=== PATIENT | male | born 1960 | race Caucasian/White ===

== ENCOUNTER 2019-12-18 09:08 | Observation (INO) ==
[2019-12-18] MEDS ORDERED: ONDANSETRON INJ 2 MG/ML 2 ML VIAL IV STA (09:26)
[2019-12-18] MEDS ORDERED: SODIUM CHLORIDE 0.9% 1000ML 1,000 ML IV SCH (09:30)
[2019-12-18] MEDS ORDERED: MoRPHine SULFATE 10 MG/ML CARP/VIAL IV STA (09:32)
--- NOTE | 2019-12-18 09:35 | Emergency Department Note ---
Impression & Plan Acute cholecystitis, Epigastric abdominal pain, Leukocytosis, CLARKE (acute kidney injury) ED Provider Note NAME: LANCE MONTALVO AGE: 59 SEX: M : 1960 ARRIVES VIA: Walk-In INFORMANT: Patient ED PROVIDER(S): Yong Morales DO CHIEF COMPLAINT: Abdominal pain HPI: Patient is a 59-year-old male who is complaining of right mid abdominal pain. This started this past Wednesday night while he was just working in his garage. He denies any trauma. He describes pain as a 10 out of 10. It is sharp and stabbing. There is no radiation. Admits to some nausea but no vomiting. Has been having normal bowel movements. No dysuria, urgency or frequency. He had no pain in back. He denies any hematuria. He has never had anything like this before. No previous belly surgeries. He notes sitting up on the toilet makes the pain slightly better. He has taken Aleve with minimal improvement. No other exacerbating or remitting factors. ROS: See above HPI for pertinent positives & negatives. A total of 10 systems reviewed and were otherwise negative. PAST MEDICAL HISTORY:See Below PAST SURGICAL HISTORY:None FAMILY HISTORY:See Below SOCIAL HISTORY:Denies smoking HOME MEDICATIONS:See Below ALLERGIES:See Below VITALS:See Below PHYSICAL EXAMINATION: GENERAL: Sitting up in bed, alert, moderate distress holding right mid abdomen EYE EXAM: normal conjunctiva. OROPHARYNX: no exudate, no erythema, lips, buccal mucosa, and tongue normal and mucous membranes are moist NECK: supple, no nuchal rigidity, no adenopathy, non-tender LUNGS: Clear to auscultation. Normal chest wall mechanics HEART: no murmurs, S1 normal and S2 normal ABDOMEN: abdomen soft, tender in right mid abdomen, normo-active bowel sounds, no masses, no rebound or guarding. BACK: Back is symmetrical on inspection and there is no deformity, no midline tenderness, no CVA tenderness. SKIN: no rashes and no bruising UPPER EXTREMITIES: upper extremities are grossly normal. LOWER EXTREMITIES: No pitting edema. NEURO EXAM: Normal sensorium, cranial nerves II-XII grossly intact, normal speech, no gross weakness of arms, no gross weakness of legs. MEDICAL DECISION MAKING: Patient is a 59-year-old male who presents the ER for severe abdominal pain which started this past Wednesday. IV was established blood work was obtained. Labs show leukocytosis of 21.5 thousand. No significant anemia. BMP with a creatinine of 1.9 suggesting acute kidney injury. BUN was also elevated consistent with dehydration. LFTs and bilirubin was negative. Lipase was normal. CT abdomen pelvis shows acute cholecystitis. Patient was given IV fluids, 2 dose of IV morphine as well as IV Zosyn. He was updated bedside. Discussed with general surgery and patient was taken to the OR for acute cholecystitis. Triage Nursing notes reviewed. Prior medical records reviewed Vital Signs: reviewed and remarkable for tachycardic and tachypneic Differential diagnosis: Differential diagnoses includes but is not limited to gastritis, peptic ulcer disease, GERD, gallbladder disease, pancreatitis, small bowel obstruction, acute coronary syndrome, pericarditis, ischemic bowel, irritable bowel disease, irritable bowel syndrome, appendicitis, diverticulitis, malignancy, hernia, urinary tract infection, torsion, /ectopic (if female), perforation, trauma, infectious. ER treatment provided: See below Diagnostics interpreted by me: ECG: none Cardiac Monitoring: An order was placed for continuous cardiac monitoring. The monitor shows a rate of 95 with sinus rhythm. Laboratory studies: As stated above and show below. Imaging studies: CT abdomen pelvis shows acute cholecystitis. Consultation(s): Discussed with Codie from general surgery who accepted the patient. ED COURSE: Procedures: none Critical Care: None Past Med/Surg History Surgical History (Updated 12/18/19 @ 13:02 by Sophia Barakat RN) History of foot surgery (Acute) left foot - placed screw in foot then removed screw several months later (when pt was a teenager) History of shoulder surgery (Acute) right shoulder S/P right knee arthroscopy Social History Feels Safe at Home: Yes Smoking Status: Never smoker Allergies Allergies Allergy/AdvReac Type Severity Reaction Status Date / Time No Known Allergies Allergy Unverified 12/18/19 11:35 Home Meds Home Medications Medication Instructions Recorded Confirmed naproxen sodium [Aleve] 220 mg PO BID PRN 12/18/19 12/18/19 Results & Data (ED) Vital Signs Vital Signs - 24 hr 12/18/19 09:22 12/18/19 09:44 12/18/19 10:46 Temperature 36.5 C Temperature Source Oral Pulse Rate 99 H Pulse Rate [Right Finger] Respiratory Rate 28 H Respiratory Effort / Characteristics Respiratory Depth Respiratory Pattern Blood Pressure 134/84 124/80 Blood Pressure [Right Arm] Blood Pressure Mean 100 100 Blood Pressure Mean [Right Arm] Blood Pressure Position [Right Arm] Pulse Oximetry 96 95 Oxygen Delivery Method Room Air Room Air Sepsis Recent Fever Within 48 Hours No Sepsis New/Unexplained Change in Mental Status No Sepsis Action Taken by Nursing No Action Required 12/18/19 10:47 12/18/19 11:36 12/18/19 11:38 Temperature Temperature Source Pulse Rate 93 H Pulse Rate [Right Finger] 92 H Respiratory Rate 22 23 Respiratory Effort / Characteristics Non-Labored Spontaneous Respiratory Depth Normal Respiratory Pattern Regular Blood Pressure 117/81 Blood Pressure [Right Arm] 128/80 Blood Pressure Mean 91 Blood Pressure Mean [Right Arm] 96 Blood Pressure Position [Right Arm] Lying Pulse Oximetry 97 Oxygen Delivery Method Room Air Sepsis Recent Fever Within 48 Hours Sepsis New/Unexplained Change in Mental Status Sepsis Action Taken by Nursing 12/18/19 12:30 12/18/19 12:42 Temperature 36.7 C Temperature Source Oral Pulse Rate Pulse Rate [Right Finger] 89 Respiratory Rate 22 Respiratory Effort / Characteristics Non-Labored Spontaneous Respiratory Depth Normal Respiratory Pattern Regular Blood Pressure Blood Pressure [Right Arm] 141/92 H Blood Pressure Mean Blood Pressure Mean [Right Arm] 108 Blood Pressure Position [Right Arm] Sitting Pulse Oximetry 93 Oxygen Delivery Method Room Air Room Air Sepsis Recent Fever Within 48 Hours Sepsis New/Unexplained Change in Mental Status Sepsis Action Taken by Nursing Laboratory Data Result diagrams: 12/18/19 09:35 12/18/19 09:35 Lab Results 12/18/19 12/18/19 Range/Units 09:35 09:35 WBC 21.52 H (4.8-10.8) K/uL RBC 5.36 (4.7-6.1) M/uL Hgb 17.5 (14.0-18.0) g/dL Hct 49.9 (42-52) % MCV 93.1 (80-100) fL MCH 32.6 (25-34) pg MCHC 35.1 (32-36) g/dL RDW Std Deviation 45.5 (36.4-46.3) fL RDW Coeff of Ahmet 13.3 (11.5-14.5) % Plt Count 161 (130-400) K/uL MPV 9.0 (7.4-10.4) fL Immature Gran % (Auto) 0.6 % Neut % (Auto) 92.8 % Lymph % (Auto) 2.6 % [place] % (Auto) 3.7 % Eos % (Auto) 0.2 % Baso % (Auto) 0.1 % Immature Gran # (Auto) 0.13 H (0.00-0.02) K/uL Neut # (Auto) 19.98 H (1.4-6.5) K/uL Lymph # (Auto) 0.55 L (1.2-3.4) K/uL [place] # (Auto) 0.79 H (0.11-0.59) K/uL Eos # (Auto) 0.05 (0-0.5) K/uL Baso # (Auto) 0.02 (0-0.2) K/uL Sodium 133 L (136-145) mmol/L Potassium 3.8 (3.5-5.1) mmol/L Chloride 96 L (98-107) mmol/L Carbon Dioxide 27 (21-32) mmol/L Anion Gap 10.0 (3-11) BUN 34 H (7-18) mg/dl Creatinine 1.90 H (0.6-1.4) mg/dl Est Cr Clr Drug Dosing Not Reportable Est GFR ( Amer) 44.4 Est GFR (Non-Af Amer) 38.3 BUN/Creatinine Ratio 18.0 (10-20) Glucose 110 H (70-99) mg/dl Calcium 8.5 (8.5-10.1) mg/dl Total Bilirubin 0.7 (0.2-1) mg/dl AST 22 (15-37) U/L ALT 19 (12-78) U/L Alkaline Phosphatase 123 H (45-117) U/L Total Protein 7.5 (6.4-8.2) gm/dl Albumin 3.0 L (3.4-5.0) gm/dl Globulin 4.5 H (2.5-4.0) gm/dl Albumin/Globulin Ratio 0.7 L (0.9-2) Lipase 51 L (73-393) U/L Administered Medications Ioversol (Optiray 320 100ml) 94 ml IV ONCE PRN PRN Reason: Interaction Checking Stop: 12/22/19 10:47 Last Admin: 12/18/19 10:49 Dose: 94 ml Documented by: [id number] Discontinued Medications Bupivacaine HCl (Marcaine 0.5% Mpf) Confirm Administered Dose 30 ml .ROUTE .STK- MED ONE Stop: 12/18/19 13:03 Last Admin: 12/18/19 14:51 Dose: 30 ml Documented by: [id number] Epinephrine HCl (Epinephrine) Confirm Administered Dose 1 mg .ROUTE .STK-MED ONE Stop: 12/18/19 13:04 Last Admin: 12/18/19 14:27 Dose: 0.15 mg Documented by: [id number] Sodium Chloride (Nss 1000ml) 1,000 mls @ 999 mls/hr IV .Q1H1M EMILEE Stop: 12/18/19 10:30 Last Infusion: 12/18/19 10:43 Dose: 0 mls/hr Documented by: [id number] Admin: 12/18/19 09:40 Dose: 999 mls/hr Documented by: [id number] Piperacillin Sod/Tazobactam Sod (Zosyn) 4.5 gm in 120 mls @ 240 mls/hr IV NOW ONE Stop: 12/18/19 11:49 Last Infusion: 12/18/19 12:11 Dose: 0 mls/hr Documented by: [id number] Admin: 12/18/19 11:34 Dose: 240 mls/hr Documented by: [id number] Morphine Sulfate (Morphine Sulfate) 6 mg IV NOW STA Stop: 12/18/19 09:33 Last Admin: 12/18/19 09:39 Dose: 6 mg Documented by: [id number] Ondansetron HCl (Zofran) 4 mg IV NOW STA Stop: 12/18/19 09:27 Last Admin: 12/18/19 09:39 Dose: 4 mg Documented by: [id number] Discharge Plan Visit Data *Final* Discharge Date/Time: 12/18/19 12:30 Chief Complaint: Abdominal Pain Stated Complaint: ABDOMINAL PAIN ED Provider: Yong Morales Discharge Problem: Acute cholecystitis, Epigastric abdominal pain, Leukocytosis, CLARKE (acute kidney injury) Patient Disposition: Still a Patient Discharge Instructions Interventions: ED Discharge Assessment Last Done: 12/18/19 12:30 Discharge Problem: Leukocytosis Qualifiers: Leukocytosis type: unspecified Qualified Code(s): D72.829 - Elevated white blood cell count, unspecified
[2019-12-18 09:50] LABS: Basophils # (auto) 0.02 K/uL (0-0.2); Basophils % (auto) 0.1 %; Eosinophils # (auto) 0.05 K/uL (0-0.5); Eosinophils % (auto) 0.2 %; Hematocrit (blood only) 49.9 % (42-52); Hemoglobin 17.5 g/dL (14.0-18.0); Immature Granulocytes # (auto) 0.13 K/uL (0.00-0.02); Immature Granulocytes % (auto) 0.6 %; Lymphocytes # (auto) 0.55 K/uL (1.2-3.4); Lymphocytes % (auto) 2.6 %; Mean Corpuscular Hemoglobin 32.6 pg (25-34); Mean Corpuscular Hgb Conc 35.1 g/dL (32-36); Mean Corpuscular Volume 93.1 fL (80-100); Monocytes # (auto) 0.79 K/uL (0.11-0.59); Monocytes % (auto) 3.7 %; Neutrophils # (auto) 19.98 K/uL (1.4-6.5); Neutrophils % (auto) 92.8 %; Platelet Count 161 K/uL (130-400); RDW Coefficient of Variation 13.3 % (11.5-14.5); RDW Standard Deviation 45.5 fL (36.4-46.3); Red Blood Count 5.36 M/uL (4.7-6.1); White Blood Count 21.52 K/uL (4.8-10.8)
[2019-12-18 10:11] LABS: Alanine Aminotransferase 19 U/L (12-78); Albumin Globulin Ratio 0.7 (0.9-2); Alkaline Phosphatase 123 U/L (45-117); Aspartate Aminotransferase 22 U/L (15-37); Bilirubin,Total 0.7 mg/dl (0.2-1); Blood Urea Nitrogen 34 mg/dl (7-18); Calcium 8.5 mg/dl (8.5-10.1); Carbon Dioxide 27 mmol/L (21-32); Chloride 96 mmol/L (98-107); Est GFR (African American) 44.4; Est GFR (Non-African American) 38.3; Globulin 4.5 gm/dl (2.5-4.0); Glucose 110 mg/dl (70-99); Lipase 51 U/L (73-393); Potassium 3.8 mmol/L (3.5-5.1); Sodium 133 mmol/L (136-145); Total Protein 7.5 gm/dl (6.4-8.2)
[2019-12-18] MEDS ORDERED: IOVERSOL 100ml IV PRN (10:48)
--- NOTE | 2019-12-18 11:14 | CT Scan Report ---
CT OF THE ABDOMEN AND PELVIS WITH CONTRAST CLINICAL HISTORY: Right-sided abdominal pain. COMPARISON STUDY: CT of the abdomen and pelvis May 10, 2015. TECHNIQUE: Following IV administration of 94 mL of Optiray-320, axial images of the abdomen and pelvi s were obtained from the lung bases to the proximal femurs. Images were reviewed in the axial, sagitt al, and coronal planes. IV contrast was administered without complication. Automated exposure contro l was utilized for the study. A dose lowering technique was utilized adhering to the principles of A TEAGAN. CT DOSE: 286.93 mGy.cm FINDINGS: Imaged portions of the lower chest demonstrate a small hiatal hernia with distal esophageal wall thickening. No pneumatosis, free air or portal venous gas is present. The liver, spleen, adrena l glands, kidneys and pancreas are unremarkable. The gallbladder is moderately distended. There is ma rked gallbladder wall thickening with moderate pericholecystic fluid. There are gallstones within the gallbladder. Indistinctness of the gallbladder wall in several locations is noted. There is mass eff ect on the adjacent colon. The right colon is fluid-filled. The appendix is unremarkable. There is no evidence for a bowel obstruction. Mild bladder wall thickening is noted. Prostate is moderately enla rged. There are no suspicious osseous lesions. IMPRESSION: 1. Findings consistent with severe acute cholecystitis. Indistinctness of the gallbladder wall raises the possibility of gangrenous cholecystitis. 2. Small hiatal hernia. Distal esophageal wall thickening which favors esophagitis. ACT 112: Negative or not required by law. Electronically signed by: Jaret Christie M.D. 12/18/2019 11:12 AM
[2019-12-18] MEDS ORDERED: PIPERACILL/TAZOBAC CONSULT ACTIVE PRN ×2 (11:20→17:50)
[2019-12-18] MEDS ORDERED: PIPERACILLIN/TAZOBACTAM 4.5 GM/120 ML BAG IV ONE (11:20)
--- NOTE | 2019-12-18 12:05 | Surgery Consultation ---
Date of Consultation December 18, 2019 Assessment & Plan (1) Acute cholecystitis: This is a 59y M with no significant PMH who presents to the [facility] ED on 12/18/19 with complaints of severe abdominal pain that has persisted since Wednesday. In the ED patient was found to have a WBC of [address] findings concerning for severe acute cholecystitis with concern for gangrenous cholecystitis. LFT's show Tbili:0.7, AST:22, ALT:19, Alkp:123, Lipase: 51. On examination patient is acutely tender in the right upper and mid right abdomen. After review of imaging findings and physical exam we will proceed to take the patient to the OR for cholecystectomy. Keep patient NPO with IVF and IV abx. Dr. Espinal will be by to obtain consent. as above. +acute cholecystitis. discussed options/risks ( bleeding/infection/dvt/pe/mi/cva/injury to an organ/bile leaks, etc...). questions answered. will proceed with lap/possible open cholecystectomies. History of Present Illness History of Present Illness This is a 59y M with no significant PMH who presents to the [facility] ED on 12/18/19 with complaints of severe abdominal pain. Patient reports the pain started on Wednesday after eating stir-hedrick. He states that the pain continued to persist and worsen throughout the weekend prompting him to come to the ED for evaluation. He hasn't had anything to eat since the stir-hedrick on wednesday and has been trying to drink water and gatorade. He says that he also had some episodes of vomiting related to the pain. In the ED patient was found to have a WBC of [address] a/p revealed findings consistent with severe acute cholecystitis. Indistinctness of the gallbladder wall raises the possibility of gangrenous cholecystitis. Patient endorses + fevers/chills over the weekend. He denies any chest pain, shortness of breath, urinary symptoms, or diarrhea/constipation. He currently rates his pain an 11/10, stating that it's sharp and constant. He denies feeling pain like this before and denies prior abdominal surgeries. Surgery was consulted for fur ther evaluation. Allergies Allergy/AdvReac Type Severity Reaction Status Date / Time No Known Allergies Allergy Unverified 12/18/19 11:35 Home Medications Home Medications Medication Instructions Recorded Confirmed Type naproxen sodium [Aleve] 220 mg PO BID PRN 12/18/19 12/18/19 History Patient History Surgical History (Updated 12/18/19 @ 12:56 by Suleman Chaves DO) History of shoulder surgery (Acute) S/P right knee arthroscopy Social History Feels Safe at Home: Yes Smoking Status: Never smoker Review of Systems Constitutional: + fever and + chills Respiratory: no dyspnea Cardiovascular: no chest pain Gastrointestinal: + abdominal pain (mid and right sided abd pain), + nausea and + vomiting; no bloating and no change in bowel habits Physical Exam Physical Exam: awake/alert Respiratory: normal respiratory effort Gastrointestinal (Abdomen): Inspection/Auscultation: abdomen not distended Percussion/Palpation: + abdomen tender (patient is ttp in the RUQ and right mid- abdomen) and + guarding Results & Data Vital Signs (Past 12 Hours) Vital Signs Temp Pulse Pulse Resp BP BP Pulse Ox 12/18/19 11:38 93 H 23 12/18/19 11:36 117/81 12/18/19 10:47 92 H 22 128/80 97 12/18/19 10:46 124/80 12/18/19 09:44 95 12/18/19 09:22 36.5 C 99 H 28 H 134/[address] OF THE ABDOMEN AND PELVIS WITH CONTRAST CLINICAL HISTORY: Right-sided abdominal pain. COMPARISON STUDY: CT of the abdomen and pelvis May 10, 2015. TECHNIQUE: Following IV administration of 94 mL of Optiray-320, axial images of the abdomen and pelvis were obtained from the lung bases to the proximal femurs. Images were reviewed in the axial, sagittal, and coronal planes. IV contrast was administered without complication. Automated exposure control was utilized for the study. A dose lowering technique was utilized adhering to the principles of ALARA. CT DOSE: 286.93 mGy.cm FINDINGS: Imaged portions of the lower chest demonstrate a small hiatal hernia with distal esophageal wall thickening. No pneumatosis, free air or portal venous gas is present. The liver, spleen, adrenal glands, kidneys and pancreas are unremarkable. The gallbladder is moderately distended. There is marked gallbladder wall thickening with moderate pericholecystic fluid. There are gallstones within the gallbladder. Indistinctness of the gallbladder wall in sev eral locations is noted. There is mass effect on the adjacent colon. The right colon is fluid-filled. The appendix is unremarkable. There is no evidence for a bowel obstruction. Mild bladder wall thickening is noted. Prostate is moderately enlarged. There are no suspicious osseous lesions. IMPRESSION: 1. Findings consistent with severe acute cholecystitis. Indistinctness of the gallbladder wall raises the possibility of gangrenous cholecystitis. 2. Small hiatal hernia. Distal esophageal wall thickening which favors esophagitis. ACT 112: Negative or not required by law. Electronically signed by: Jaret Christie M.D. 12/18/2019 11:12 AM PG Care Time/CCT Total # of Minutes Spent Total Time Spent with Patient: Total time spent is greater than 50% in coordination of care (as documented) at patient's floor/unit and/or counseling patient: Coding Level of Care Code 78338 Office/OBS Consult Lvl 4 Diagnoses Acute cholecystitis K81.0
[2019-12-18] MEDS ORDERED: ePHEDrine sulfate 50 MG/ML AMP IV PRN (12:39)
[2019-12-18] MEDS ORDERED: ATROPINE SULFATE 0.1 MG/ML 10ML SYR IV PRN (12:39)
[2019-12-18] MEDS ORDERED: ONDANSETRON INJ 2 MG/ML 2 ML VIAL IV PRN ×2 (12:39→22:01)
[2019-12-18] MEDS ORDERED: ROCURONIUM BROMIDE 10 MG/ML 5 ML VIAL ONE ×2 (12:51→13:16)
[2019-12-18] MEDS ORDERED: fentaNYL citrate 100 MCG/2 ML VIAL ONE ×3 (12:51→14:06)
[2019-12-18] MEDS ORDERED: MIDAZOLAM HCL 1 MG/ML 2ML VIAL ONE ×2 (12:51→13:16)
[2019-12-18] MEDS ORDERED: LIDOCAINE HCL 2% 2 ML VIAL/AMP(20MG/ML) INFIL ONE ×3 (12:51→14:17)
[2019-12-18] MEDS ORDERED: ONDANSETRON INJ 2 MG/ML 2 ML VIAL ONE ×2 (12:51→13:16)
[2019-12-18] MEDS ORDERED: PROPOFOL IV EMULSION 10 MG/ML 20 ML VIAL IV ONE ×2 (12:51→13:16)
--- NOTE | 2019-12-18 12:58 | Anesthesiology Consultation ---
Date of Service December 18, 2019 Assessment & Plan (1) Encounter for pre-operative examination: Chart Review Chart Review: Acceptable Risk for Surgery Consults Requested none ASA ASA2 Proposed Anesthesia Anesthesia Type: General Risk / Benefits Reviewed With: PT / POA / Parent / Guardian, Accepts Plan and Informed Consent Obtained History Surgery Operation Date: 12/18/19 12:35 Proposed Procedures p Laparoscopic Cholecystectomy - Lex Espinal, DO Height/Weight Height: 5 ft 7 in Weight: 83.915 kg Allergies Allergy/AdvReac Type Severity Reaction Status Date / Time No Known Allergies Allergy Unverified 12/18/19 11:35 Medications Home Medications Medication Instructions Recorded Confirmed Last Taken naproxen sodium [Aleve] 220 mg PO BID PRN 12/18/19 12/18/19 12/18/19 Active Medications Generic Name Dose Route Start Last Admin Trade Name Freq PRN Reason Stop Dose Admin Ioversol 94 ml 12/18/19 10:48 12/18/19 10:49 Optiray 320 100ml IV 12/22/19 10:47 94 ml ONCE PRN Administration Interaction Checking NPO Date Last Intake of Fluids: 12/18/19 Time Last Intake of Fluids: 08:30 Date Last Intake of Solids: 12/15/19 Exercise / Class Metabolic Activity II 4-5 Yardwork/Stairs/Walk up hill Past Surgical History Surgical History (Updated 12/18/19 @ 13:02 by Sophia Barakat RN) History of foot surgery (Acute) left foot - placed screw in foot then removed screw several months later (whe n pt was a teenager) History of shoulder surgery (Acute) right shoulder S/P right knee arthroscopy Past Anesthesia History No Hx of Anesthesia Complications and No Family Hx of Anesthesia Complications History of PONV No Hx of PONV and No Hx of Motion Sickness Social History Smoking Status: Never smoker Physical Exam Vital Signs Last Vital Signs Temp 98.1 F 12/18/19 12:42 Pulse 89 12/18/19 12:42 Resp 22 12/18/19 12:42 BP 141/92 H 12/18/19 12:42 Pulse Ox 93 12/18/19 12:42 ENMT Mouth: no dentition abnormality Thyromental Distance: > or= 3.5 Finger Breadths Mallampati Class: II Neck normal visual inspection Respiratory normal respiratory effort Auscultation: lungs clear to auscultation bilaterally Cardiovascular Rate/Rhythm: regular rate and regular rhythm Testing Laboratory Results 12/18/19 09:35 12/18/19 09:35 Electrocardiogram Date: 12/18/19 Findings: + NSR @ (95 bpm) short IA
[2019-12-18] MEDS ORDERED: BUPIVACAINE 0.5 % 5 MG/1 ML MPF 30ML VIAL ONE (13:02)
[2019-12-18] MEDS ORDERED: EPINEPHrine INJ 1 MG/ML AMP ONE (13:03)
[2019-12-18] MEDS ORDERED: GLYCOPYRROLATE 0.2 MG/ML VIAL ONE (14:17)
[2019-12-18] MEDS ORDERED: LARYING-O-JET KIT (LTA) ONE (14:17)
[2019-12-18] MEDS ORDERED: NEOSTIGMINE METHYLSULFATE 5 MG/5 ML SYR ONE (14:17)
[2019-12-18] MEDS ORDERED: DEXAMETHASONE SOD INJ 4 MG/ML VIAL ONE (14:17)
[2019-12-18] MEDS ORDERED: LABETALOL HCL IV 5 MG/ML 20ML IV ONE (14:22)
--- NOTE | 2019-12-18 15:08 | Operative Report ---
PG Post Operative Report Pre & Post Diagnosis Operation Date: 12/18/19 12:35 Pre-Op Diagnosis: Acute Cholecystitis Post-Op Diagnosis: Acute Cholecystitis I identified the patient and participated in the time-out.: Yes Procedure Operation Date: 12/18/19 12:35 Actual Procedures p Laparoscopic Cholecystectomy(Not Applicable) - Lex Espinal DO Surgeon Lex Espinal DO [employer] Floorperson kaitlynn Andino Estimated Blood Loss 25 Findings Consistent with Post-Op Diagnosis Specimens gallbladder Description of Procedure After informed consent was obtained the patient was taken to the operating room and placed in the supine position. After successful intubation the abdomen was sterilely prepped and draped in usual fashion. A periumbilical incision was made with an 11 blade scalpel and carried down through the soft tissue using electrocautery. The anterior rectus fascia was opened using electrocautery and 2 #0 Vicryl stay sutures were placed. The peritoneum was elevated with hemostats and incised under direct vision using Metzenbaum scissors. A finger sweep was performed and a 12 mm Thomas trocar was placed. The abdomen was insufflated to 18 mmHg. The laparoscope was inserted and the abdomen was examined in 360. There was immediately noted obvious severe inflammation in the right upper quadrant. A subxiphoid 5 mm port which would later be converted to a 12 mm port and 2 right upper quadrant 5 mm ports were placed under direct vision. The patient was placed in a reverse Trendelenburg position and slightly airplaned to the left. The gallbladder was gangrenous. We used a gallbladder needle to extract about 40 cc of thick bile so that we could grasp the gallbladder. The gallbladder was grasped and elevated superiorly and laterally. A [place] dissector was used to take down adhesions around the neck of the gallbladder. Initially I noted the cystic artery which I clipped twice proximally once distally and divided. There is also a lateral branch which I clipped and divided as well. Because of the gross inflammation it was somewhat difficult dissection. Eventually I was able to get around the neck of the gallbladder. I feel it was too dangerous to dissect deeper towards the common bile duct to identify the true cystic duct. After coming around behind the neck of the gallbladder I was able to use a ETHAN brown cartridge 45 mm stapler to transect the cystic duct at its junction with the neck of the gallbladder. The gallbladder was removed from the gallbladder fossa with electrocautery. There was some spillage of bile as well as small stones during this process. We thoroughly suctioned and irrigated and removed all visible stones and bile. Once this was done the gallbladder was grasped and it was placed into an Endo Catch bag. Additional thorough irrigation was performed. At the end of the procedure there was adequate hemostasis and no evidence of any bile leaks. Cautery was used to control any small bleeding points on the gallbladder fossa. I decided to place a 10 flat Sharif-Hughes drain into the right upper quadrant and brought it out 1 of the 5 mm port sites. It was secured to the skin using 0 Vicryl. A final look around the abdomen showed no other abnormalities. The gallbladder and trochars were all removed and the abdomen was desufflated. The fascia of the camera port was closed using 0 Vicryl in a [id number] fashion. All the wounds were irrigated and closed using 4-0 Monocryl. Marcaine was injected around them for postoperative analgesia and skin glue used as a dressing. The patient was awaken extubated and transferred to recovery in stable condition. My physician's urology physician assistant was present throughout the entire case... helped with prepping the patient. With exposure for trocar placement, as well as retracted the gallbladder throughout the case and also assisted with wound closure and dressing placement. I attest to the content of the Intraoperative Record and any orders documented therein. Any exceptions are noted below.
--- NOTE | 2019-12-18 16:12 | Anesthesiology Progress Note ---
Date of Service December 18, 2019 Anesthesia Post Procedure Vital Signs Vital Signs: Temp Pulse Pulse Pulse Resp BP BP 12/18/19 16:00 36.9 C 80 18 138/92 12/18/19 15:50 78 12 130/89 12/18/19 15:40 74 15 122/83 12/18/19 15:31 36.8 C 71 14 125/89 12/18/19 12:42 36.7 C 89 22 141/92 H 12/18/19 11:38 93 H 23 12/18/19 11:36 117/81 12/18/19 10:47 92 H 22 128/80 12/18/19 10:46 124/80 12/18/19 09:44 12/18/19 09:22 36.5 C 99 H 28 H 134/84 Pulse Ox 12/18/19 16:00 96 12/18/19 15:50 96 12/18/19 15:40 99 12/18/19 15:31 97 12/18/19 12:42 93 12/18/19 11:38 12/18/19 11:36 12/18/19 10:47 97 12/18/19 10:46 12/18/19 09:44 95 12/18/19 09:22 96 Pain Intensity Abdomen: Pain Intensity: 0 Transfer of Care Handoff Completed per policy Notes Mental Status: alert / awake / arousable and participated in evaluation Patient Amnestic to Procedure: Yes Nausea / Vomiting: adequately controlled Pain: adequately controlled Airway Patency, RR, SpO2: stable & adequate BP & HR: stable & adequate Hydration State: stable & adequate Anesthetic Complications: no major complications apparent and Pt Satisfied with anesthetic care
[2019-12-18] MEDS: fentaNYL citrate 100 MCG/2 ML VIAL IV PRN ×4 (16:45→17:00)
--- NOTE | 2019-12-18 17:00 | Electrocardiogram Report ---
Test Reason : Blood Pressure : / mmHG Vent. Rate : 095 BPM Atrial Rate : 095 BPM P-R Int : 110 ms QRS Dur : 076 ms QT Int : 362 ms P-R-T Axes : 046 040 041 degrees QTc Int : 454 ms Sinus rhythm Otherwise normal ECG When compared with ECG of 10-SEP-2014 16:31, Vent. rate has increased BY 45 BPM QT has lengthened Confirmed by Cristopher Sales ([id number]) on 12/18/2019 5:00:35 PM Referred By: REFERRED SELF Confirmed By:Deonte Sales
[2019-12-18] MEDS ORDERED: PIPERACILLIN/TAZOBACTAM 3.375 GM in DEXTROSE 5% 100 ML IV SCH (17:50)
[2019-12-18] MEDS ORDERED: HYDROCODONE/ACETAMOPHEN 5/325MG TAB PO PRN (17:50)
[2019-12-18] MEDS ORDERED: MoRPHine SULFATE 2 MG/ML CARP IV PRN (17:57)
[2019-12-18] MEDS ORDERED: MoRPHine SULFATE 4 MG/ML 1 ML CARP\\VIAL IV PRN (17:58)
[2019-12-18] MEDS: LACTATED RINGER'S 1,000 ML IV SCH (18:17)
[2019-12-18] MEDS ORDERED: PIPERACILLIN/TAZOBACTAM 3.375 GM in DEXTROSE 5% 100 ML IV ONE (18:30)
[2019-12-18 22:23] LABS: Appearance Urine Clear (Clear); Bacteria Urine Automated Negative (Negative); Bilirubin Urine Negative (Negative); Blood Urine 2+ (Negative); Color Urine Dark Yellow; Epithelial Cell Urine Auto >30 /lpf (0-5); Glucose Urine UA Negative (Negative); Ketones Urine Negative (Negative); Leukocyte Esterase Urine Negative (Negative); Nitrite Urine Negative (Negative); Protein Urine 1+ (Negative); RBC Urine Automated 0-4 /hpf (0-4); Urobilinogen Urine Negative (Negative)
[2019-12-18 22:32] LABS: Renal Epithelial Cells Urine 0-5 /lpf (0-5)
[2019-12-19] MEDS: PIPERACILLIN/TAZOBACTAM 3.375 GM in DEXTROSE 5% 100 ML IV SCH ×4 (00:39→23:50)
[2019-12-19] MEDS: HYDROCODONE/ACETAMOPHEN 5/325MG TAB PO PRN ×3 (00:47→19:42)
[2019-12-19] MEDS: LACTATED RINGER'S 1,000 ML IV SCH ×2 (04:41→13:11)
[2019-12-19 06:18] LABS: Hemoglobin 14.8 g/dL (14.0-18.0); Mean Corpuscular Hemoglobin 31.9 pg (25-34); Mean Corpuscular Hgb Conc 34.4 g/dL (32-36); Mean Corpuscular Volume 92.7 fL (80-100); Platelet Count 140 K/uL (130-400); Red Blood Count 4.64 M/uL (4.7-6.1); White Blood Count 15.47 K/uL (4.8-10.8)
[2019-12-19 06:35] LABS: BUN Creatinine Ratio 20.4 (10-20); Bilirubin Direct 0.1 mg/dl (0-0.2); Calcium 8.3 mg/dl (8.5-10.1); Est GFR (African American) 63.6; Est GFR (Non-African American) 54.9; Potassium 3.8 mmol/L (3.5-5.1)
[2019-12-19 06:42] LABS: Bilirubin,Total 0.5 mg/dl (0.2-1); Total Protein 5.7 gm/dl (6.4-8.2)
--- NOTE | 2019-12-19 09:01 | Surgery Progress Note ---
Date of Service December 19, 2019 Assessment & Plan (1) Acute cholecystitis: POD 1 lap susan drain stripped, and irrigated, seems to be working better will recheck later today, consider HIDA if we can assess amount of drainage or increases seen with Dr. Espinal as above. pt feeling much better and wants to go home. CONCEPCION has been leaking around the tubing. still with bilious drainage though we had alot of intra-op spillage drain stipped/flushded at bedside. not ready for d/c. will re-eval drain output later and HIDA if bilious output persists. labs overall improving. Subjective c/o drain leaking Physical Exam Gastrointestinal (Abdomen): Inspection/Auscultation: + abdominal surgical incision (drainage around CONCEPCION, dressing saturated) Percussion/Palpation: abdomen soft Results & Data Vital Signs (Past 12 Hours) Vital Signs Temp Pulse Resp BP Pulse Ox 12/19/19 07:00 36.7 C 87 16 131/82 93 12/19/19 03:41 36.9 C 86 20 127/77 92 12/18/19 23:17 37.0 C 82 16 122/76 93 PG Care Time/CCT Total # of Minutes Spent Total Time Spent with Patient: Total time spent is greater than 50% in coordination of care (as documented) at patient's floor/unit and/or counseling patient: Coding Level of Care Code None Diagnoses Acute cholecystitis K81.0
[2019-12-20] MEDS: HYDROCODONE/ACETAMOPHEN 5/325MG TAB PO PRN (03:31)
[2019-12-20 06:10] LABS: Hematocrit (blood only) 41.9 % (42-52); Hemoglobin 13.5 g/dL (14.0-18.0); Mean Corpuscular Hemoglobin 30.1 pg (25-34); Mean Corpuscular Hgb Conc 32.2 g/dL (32-36); Mean Corpuscular Volume 93.5 fL (80-100); Platelet Count 137 K/uL (130-400); RDW Coefficient of Variation 13.4 % (11.5-14.5); RDW Standard Deviation 46.1 fL (36.4-46.3); Red Blood Count 4.48 M/uL (4.7-6.1); White Blood Count 13.65 K/uL (4.8-10.8)
[2019-12-20 06:45] LABS: Albumin Level 1.8 gm/dl (3.4-5.0); BUN Creatinine Ratio 21.8 (10-20); Calcium 8.1 mg/dl (8.5-10.1); Creatinine Clr Calc Pharmacy 71.9 ml/min; Est GFR (African American) 89.9; Est GFR (Non-African American) 77.5; Potassium 3.4 mmol/L (3.5-5.1)
[2019-12-20 06:48] LABS: Bilirubin,Total 0.5 mg/dl (0.2-1); Total Protein 5.6 gm/dl (6.4-8.2)
[2019-12-20 08:14] LABS: Bilirubin Direct 0.2 mg/dl (0-0.2)
--- NOTE | 2019-12-20 08:21 | Surgery Progress Note ---
Date of Service December 20, 2019 Assessment & Plan (1) Acute cholecystitis: POD 2 lap susan HIDA this AM WBC improving may be able to d/c home with/without drain depending on HIDA Subjective feels much better Physical Exam Gastrointestinal (Abdomen): Inspection/Auscultation: abdomen not distended Percussion/Palpation: abdomen soft CONCEPCION 20 cc overnight, more serous, still drainage around tubing Results & Data Vital Signs (Past 12 Hours) Vital Signs Temp Pulse Resp BP Pulse Ox 12/20/19 07:24 36.7 C 85 16 137/73 90 12/19/19 23:29 37.1 C 85 18 140/80 90 PG Care Time/CCT Total # of Minutes Spent Total Time Spent with Patient: Total time spent is greater than 50% in coordination of care (as documented) at patient's floor/unit and/or counseling patient: Coding Level of Care Code None Diagnoses Acute cholecystitis K81.0
--- NOTE | 2019-12-20 09:17 | Nuclear Medicine Report ---
NUCLEAR MEDICINE HEPATOBILIARY SCAN HISTORY: Status post cholecystectomy. ? post op bile leak. Abnormal drainage around abdominal drain. COMPARISON: Abdomen and pelvis CT 12/18/2019. TECHNIQUE: Immediately following the intravenous administration of 5.3 mCi Tc-99m Choletec, dynamic a nterior abdominal imaging was performed for a total 40 minutes. FINDINGS: Uniform hepatic tracer accumulation is shown. Prompt intrahepatic biliary excretion is seen. Radiotra cer is identified within the common bile duct and small bowel by 10 minutes. Patient is status post c holecystectomy. There is no radiotracer identified within the resection bed or abdominal cavity. IMPRESSION: No evidence for bowel leak status post cholecystectomy. ACT 112: Negative or not required by law. Electronically signed by: Nahun Jimenes M.D. 12/20/2019 9:16 AM
[2019-12-20] MEDS: PIPERACILLIN/TAZOBACTAM 3.375 GM in DEXTROSE 5% 100 ML IV SCH (09:39)
--- NOTE | 2019-12-22 09:11 | Discharge Summary ---
Date of Service December 22, 2019 Principal Diagnosis Acute Cholecystitis Discharge Exam Gastrointestinal (Abdomen) Inspection/Auscultation: + abdominal surgical drain present (CONCEPCION drain with serous output, pulled prior to discharge) Percussion/Palpation: abdomen soft; abdomen nontender Discharge Data Allergies Allergy/AdvReac Type Severity Reaction Status Date / Time No Known Allergies Allergy Unverified 12/18/19 11:35 Consultations 12/18/19 11:20 ED Decision to Admit Stat Procedures Performed Operation Date: 12/18/19 12:35 Actual Procedures p Laparoscopic Cholecystectomy(Not Applicable) - Lex Espinal DO Ordered Studies 12/18/19 09:26 CT abd pelvis IV con only Stat Hospital Course (1) Acute cholecystitis: This is a 59yM with no significant PMH who presented to the [facility] ED on 12/18/19 with complaints of severe abdominal pain, associated with some nausea/vomiting and fevers/chills. Workup in the ED with a CT a/p revealed findings concerning for severe acute cholecystitis with the possibility of gangrenous cholecystitis. The patient was kept NPO with IVF and started on IV abx. Decision was made to take the patient to the OR for a laparoscopic cholecystectomy. The patient tolerated the procedure well, see op note for full details. The patient recovered in the PACU and was transferred to the surgical nursing floor with a CONCEPCION drain in place, IV abx, and on a clear liquid diet. Post op patient was noted to have drainage around his CONCEPCION drain, this was trouble- shooted by attempting to strip and flush the CONCEPCION, without much success. On POD2 decision was made to obtain a HIDA scan for evaluation that revealed no evidence of bowel leak s/p cholecystectomy. The patient otherwise had an unremarkable admission, his diet was advanced as tolerated, pain remained well controlled, and LFT's were within normal limits on the day of discharge. On POD#2 after the HIDA scan was performed his CONCEPCION drain was removed and he was deemed stable for discharge to home to complete a course of oral antibiotic. Patient was given d ischarge instructions and asked to follow up in clinic within 1-2 weeks. Total Time Total Time Spent Total Time Spent (In Minutes): 10 Discharge Plan Discharge Items Patient Disposition: Home - Self-Care Reason For Visit: acute cholecystitis Discharge Diagnosis: laparoscopic cholecystectomy Activity: Per Instructions section Lifting: No more than 10 pounds Bathing Comment: november shower; no soaking in tubs Exercise/Sports: Wait until after follow-up appointment Driving/Machine Use: do not resume driving while taking narcotics for pain Non-emergency contact: Surgeon Call non-emergency contact if: you have any medication questions, your symptoms worsen, your pain is not controlled, your pain is worsening, you have a fever, your temperature is above 101.5, your wound has increased redness, your wound has increased drainage and your wound pain has increased Follow-up/Referrals: Lex Espinal, [Surgeon] - (Please call the office to schedule a follow up in clinic within 2 weeks) Fabian Mueller [Primary Care Provider] - Diet: Regular Addtl Attending Provider Instructions: Pending Studies at Discharge: Yes Studies:: surgical pathology Stand-Alone Forms: [facility]id [facility] Management Medications and DC Order Prescriptions: New hydrocodone-acetaminophen [[place]] 5-325 mg tablet 1 - 2 tab PO .q4-6h PRN (Reason: pain, for initial therapy, max 6 tabs per day) Qty: 15 RF: 0 amoxicillin-pot clavulanate [Augmentin] 875-125 mg tablet 1 tab PO BID Qty: 14 RF: 0 Continued naproxen sodium [Aleve] 220 mg Capsule 220 mg PO BID PRN (Reason: Pain) RF: 0 Discharge Orders: Discharge Order (Routine); Ordered 12/20/19 Ordered By: Lex Guo/Other Patient Handouts: DVT Prevention Admission Data Admit Date/Time: 12/18/19 15:12 Attending Provider: Lex Espinal Admit Provider: Codie Andino Primary Care Provider: Fabian Mueller Other Providers: Lex Espinal Other Interventions: Discharge Summary Assessment (RN) Last Done: 12/20/19 11:03 DC Date/Time DO NOT enter until pt leaves facility: 12/20/19 11:55 Coding Level of Care Code D/C Day Management <30 mins Diagnoses Acute cholecystitis K81.0
== END 2019-12-20 11:55 | disposition home or self-care (01) ==
LOC: ED 09:08 → 3E 12:30 → ASU 12:30